=== PATIENT | female | born 1935 | race Asian ===

== ENCOUNTER 2017-02-19 16:01 | Inpatient (IN) | payer MEDICARE, OTHER ==
[~2017-02-19] VITALS: Ht 160 cm; Wt 68.0 kg
[~2017-02-19 16:01] MED LIST: Acetaminophen 500mg (ES) tab PO ONE; Neosporin Oint Ud Pkt TOP ONE; Tetanus/Diptheria/Pertussis Vaccine 0.5ml Syr IM ONE
[2017-02-19 16:28] LABS: BASOPHILS % (AUTO) 1.6 % (0.0-2.0); EOSINOPHILS % (AUTO) 2.5 % (0.0-3.0); LYMPHOCYTES % (AUTO) 34.4 % (20.0-45.0); MEAN CORPUSCULAR HEMOGLOBIN 32.9 PG (27.0-31.0); MEAN CORPUSCULAR HGB CONC 33.9 G/DL (32.0-36.0); MEAN CORPUSCULAR VOLUME 97 FL (80-99); MEAN PLATELET VOLUME 8.8 FL (6.5-10.1); MONOCYTES % (AUTO) 7.3 % (1.0-10.0); NEUTROPHILS % (AUTO) 54.2 % (45.0-75.0); PLATELET COUNT 134 K/UL (150-450); RED BLOOD COUNT 3.97 M/UL (4.20-5.40); RED CELL DISTRIBUTION WIDTH 11.8 % (11.6-14.8); WHITE BLOOD COUNT 4.9 K/UL (4.8-10.8)
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
[2017-02-19 16:48] LABS: PROTHROMBIN TIME 10.3 SEC (9.30-11.50)
[2017-02-19 16:55] LABS: TROPONIN I < 0.30 ng/mL (<=0.30)
[2017-02-19 16:56] LABS: ALANINE AMINOTRANSFERASE 27 U/L (3-33); ALBUMIN/GLOBULIN RATIO 1.2 (1.0-2.7); ANION GAP 14 (5-15); ASPARTATE AMINO TRANSFERASE 29 U/L (5-40); CALCIUM 9.7 mg/dL (8.6-10.2); CARBON DIOXIDE 24 mEQ/L (20-30); CHLORIDE 101 mEQ/L (98-107); HEMOLYSIS 36; POTASSIUM 4.8 mEQ/L (3.4-4.9); SODIUM 139 mEQ/L (135-145); TOTAL PROTEIN 7.9 g/dL (6.6-8.7)
[2017-02-19 17:42] VITALS: BP 157/94
[2017-02-19] MEDS ORDERED: Cephalexin 500mg cap ORAL ONE (18:30)
[2017-02-19 18:51] VITALS: BP 133/65
[2017-02-19] MEDS ORDERED: UNOBMED (18:53)
[2017-02-19 19:03] LABS: APPEARANCE,URINE CLEAR; KETONES,URINE NEGATIVE (NEGATIVE); LEUKOCYTE ESTERASE ,URINE 3+ (NEGATIVE); NITRITE,URINE NEGATIVE (NEGATIVE); PH,URINE 5 (4.5-8.0); PROTEIN,URINE NEGATIVE (NEGATIVE); UROBILINOGEN,URINE NORMAL MG/DL (0.0-1.0)
[2017-02-19 19:13] LABS: RBC,URINE 0-2 /HPF (0 - 2); WBC,URINE 15-20 /HPF (0 - 2)
[2017-02-19 19:14] LABS: BACTERIA,URINE FEW /HPF; SQUAMOUS EPITHELIAL CELL,UR OCCASIONAL /LPF (NONE/OCC)
[2017-02-19 20:34] VITALS: BP 130/62
[2017-02-19] MEDS ORDERED: ATORVASTATIN CA40 MG ORAL (21:39)
[2017-02-19] MEDS ORDERED: SINEMET 25-1001 EAC1 ORAL (21:39)
[2017-02-19] MEDS ORDERED: OMEPRAZOLE20 M2 ORAL (21:39)
[2017-02-19] MEDS ORDERED: JANUVIA100 MG ORAL (21:39)
[2017-02-19] MEDS ORDERED: VESICARE5 MG ORAL (21:41)
[2017-02-19] MEDS ORDERED: DIOVAN HCT 1601 EAC1 ORAL (21:41)
[2017-02-19] MEDS ORDERED: RESTASIS1 EACH BOTH EYES (21:41)
[2017-02-20 00:45] VITALS: BP 113/52
[2017-02-20 04:33] VITALS: BP 138/69
[2017-02-20 05:23] LABS: EOSINOPHILS % (AUTO) 1.7 % (0.0-3.0); MEAN CORPUSCULAR HEMOGLOBIN 33.3 PG (27.0-31.0); MEAN CORPUSCULAR HGB CONC 34.5 G/DL (32.0-36.0); MEAN CORPUSCULAR VOLUME 96 FL (80-99); MEAN PLATELET VOLUME 8.7 FL (6.5-10.1); MONOCYTES % (AUTO) 9.6 % (1.0-10.0); NEUTROPHILS % (AUTO) 51.6 % (45.0-75.0); PLATELET COUNT 145 K/UL (150-450); RED BLOOD COUNT 3.65 M/UL (4.20-5.40); RED CELL DISTRIBUTION WIDTH 11.9 % (11.6-14.8); WHITE BLOOD COUNT 4.8 K/UL (4.8-10.8)
[2017-02-20] MEDS: NovoLOG Insulin Flexpen SUBQ SCH ×4 (06:30→21:12)
[2017-02-20 06:38] LABS: TROPONIN I < 0.30 ng/mL (<=0.30)
[2017-02-20 06:44] LABS: ALANINE AMINOTRANSFERASE 29 U/L (3-33); ALBUMIN/GLOBULIN RATIO 1.1 (1.0-2.7); ANION GAP 13 (5-15); ASPARTATE AMINO TRANSFERASE 22 U/L (5-40); CALCIUM 9.1 mg/dL (8.6-10.2); CARBON DIOXIDE 23 mEQ/L (20-30); CHLORIDE 106 mEQ/L (98-107); CHOLESTEROL 193 mg/dL (< 200); CHOLESTEROL/HDL RATIO 4.8 (3.3-4.4); HEMOLYSIS 4; LDL CHOLESTEROL (CALC.) 97 mg/dL (60-99); POTASSIUM 3.7 mEQ/L (3.4-4.9); SODIUM 142 mEQ/L (135-145); TOTAL PROTEIN 6.9 g/dL (6.6-8.7)
[2017-02-20 08:10] VITALS: BP 125/71
--- NOTE | 2017-02-20 08:26 | History & Physical ---
History and Physical History & Physicial seen and examined. Dictation is completed. Kodak Cuevas MD Feb 20, 2017 08:26
--- NOTE | 2017-02-20 08:29 | General Progress Note ---
Assessment/Plan Status: stable Assessment/Plan 1- Acute Encephalopathy 2- DM 3- HLP 4- Parkinsonism 5- Gi-DVT prophylaxia 6- Breast CA survivor Plan: Cardiology and Neurology services are consulted pending lab results Subjective ROS Limited/Unobtainable: No Constitutional: Reports: no symptoms HEENT: Reports: no symptoms Cardiovascular: Reports: no symptoms Respiratory: Reports: no symptoms Allergies: Coded Allergies: No Known Allergies (Unverified , 02/19/17) Objective Last 24 Hour Vital Signs Date Time Temp Pulse Resp B/P (MAP) Pulse Ox O2 Delivery O2 Flow Rate FiO2 02/20/17 08:10 97.5 73 19 125/71 96 Room Air 02/20/17 04:33 97.2 79 19 138/69 98 Room Air 02/20/17 04:00 76 02/20/17 00:45 97.1 70 19 113/52 96 Room Air 02/20/17 00:00 71 02/19/17 20:34 97.0 64 19 130/62 97 Room Air 02/19/17 20:00 64 02/19/17 19:54 97.2 64 16 133/65 98 Room Air 02/19/17 18:51 97.2 64 16 133/65 98 Room Air 02/19/17 18:29 98.2 02/19/17 17:42 98.2 16 157/94 97 02/19/17 16:10 70 15 Room Air 02/19/17 15:51 98.2 92 16 157/94 97 Laboratory Tests 02/19/17 16:10: White Blood Count 4.9, Red Blood Count 3.97L, Hemoglobin 13.1, Hematocrit 38.6, Mean Corpuscular Volume 97, Mean Corpuscular Hemoglobin 32.9H, Mean Corpuscular Hemoglobin Concent 33.9, Red Cell Distribution Width 11.8, Platelet Count 134L, Mean Platelet Volume 8.8, Neutrophils (%) (Auto) 54.2, Lymphocytes (%) (Auto) 34.4, Monocytes (%) (Auto) 7.3, Eosinophils (%) (Auto) 2.5, Basophils (%) (Auto ) 1.6, Prothrombin Time 10.3, Prothromb Time International Ratio 1.0, Activated Partial Thromboplast Time 27, Sodium Level 139, Potassium Level 4.8, Chloride Level 101, Carbon Dioxide Level 24, Anion Gap 14, Blood Urea Nitrogen 30H, Creatinine 1.0H, Estimat Glomerular Filtration Rate , Glucose Level 207H, Calcium Level 9.7, Total Bilirubin 0.5, Aspartate Amino Transf (AST/SGOT) 29, Alanine Aminotransferase (ALT/SGPT) 27, Alkaline Phosphatase 77, Troponin I < 0.30, Total Protein 7.9, Albumin 4.4, Globulin 3.5, Albumin/Globulin Ratio 1.2 02/19/17 18:37: Urine Color Pale yellow, Urine Appearance Clear, Urine pH 5, Urine Specific [place] 1.010, Urine Protein Negative, Urine Glucose (UA) 2+H, Urine Ketones Negative, Urine Occult Blood Negative, Urine Nitrite Negative, Urine Bilirubin Negative, Urine Urobilinogen Normal, Urine Leukocyte Esterase 3+H, Urine RBC 0-2 , Urine WBC 15-20H, Urine Squamous Epithelial Cells Occasional, Urine Bacteria Few 02/20/17 04:00: White Blood Count 4.8, Red Blood Count 3.65L, Hemoglobin 12.2, Hematocrit 35.2L , Mean Corpuscular Volume 96, Mean Corpuscular Hemoglobin 33.3H, Mean Corpuscular Hemoglobin Concent 34.5, Red Cell Distribution Width 11.9, Platelet Count 145L, Mean Platelet Volume 8.7, Neutrophils (%) (Auto) 51.6, Lymphocytes ( %) (Auto) 36.0, Monocytes (%) (Auto) 9.6, Eosinophils (%) (Auto) 1.7, Basophils (%) (Auto) 1.0, Sodium Level 142, Potassium Level 3.7, Chloride Level 106, Carbon Dioxide Level 23, Anion Gap 13, Blood Urea Nitrogen 29H, Creatinine 1.0H , Estimat Glomerular Filtration Rate , Glucose Level 220H, Calcium Level 9.1, Total Bilirubin 0.3, Aspartate Amino Transf (AST/SGOT) 22, Alanine Aminotransferase (ALT/SGPT) 29, Alkaline Phosphatase 68, Troponin I < 0.30, Total Protein 6.9, Albumin 3.7, Globulin 3.2, Albumin/Globulin Ratio 1.1, Hemoglobin A1c 7.0H, Pro-B-Type Natriuretic Peptide 402, Triglycerides Level 279H, Cholesterol Level 193, LDL Cholesterol 97, HDL Cholesterol 40, Cholesterol /HDL Ratio 4.8H, Thyroid Stimulating Hormone (TSH) 6.810H Height (Feet): 5 Height (Inches): 3.00 Weight (Pounds): 150 General Appearance: no apparent distress EENT: PERRL/EOMI Neck: supple Cardiovascular: normal rate Respiratory/Chest: lungs clear Abdomen: soft Extremities: non-tender Neurologic: oriented x 3 Skin: other - left ear laceration Kodak Cuevas MD Feb 20, 2017 08:29
[2017-02-20] MEDS ORDERED: Flu Vaccine Quadrivalent 0.5ml IM ONE (09:00)
[2017-02-20] MEDS ORDERED: Pneumococcal Vaccine 25mcg/0.5ml IM ONE (09:00)
[2017-02-20] MEDS ORDERED: Irbesartan 150mg tablet ORAL SCH (09:00)
[2017-02-20] MEDS: Sinemet 25/100 tab ORAL SCH ×3 (09:37→18:20)
[2017-02-20] MEDS: Bacitracin Oint UD TOPIC SCH (09:37)
[2017-02-20] MEDS: Aspirin Baby 81mg ORAL SCH (09:37)
[2017-02-20] MEDS: Enoxaparin 40mg Inj SUBQ SCH (09:41)
--- NOTE | 2017-02-20 10:25 | Diagnostic Imaging Report ---
Indication: Head pain status post trauma Technique: Continuous helical CT scanning of the head was performed utilizing automated exposure control without intravenous contrast material. Axial and coronal reconstructions were obtained. Comparison: None CT dose: Total DLP 1421 mGycm; CTDI vol 70.4 mGy Findings: There is no acute intracranial hemorrhage, mass effect or cortical edema. The ventricles, cisterns and sulci are prominent consistent with atrophy. Minimal periventricular hypoattenuation is seen, a nonspecific finding, suggestive of age-related chronic ischemic but lesser changes. The posterior fossa and fourth ventricle are unremarkable. Sellar and suprasellar regions are grossly unremarkable. Mastoid air cells are clear. Right frontal and maxillary sinus disease is noted. No focal lesions of the bony calvarium or soft tissues of the scalp are seen. Impression: No evidence of acute intracranial hemorrhage, mass effect or cortical edema. No skull fracture. Atrophy and minimal nonspecific periventricular hypoattenuation suggestive of chronic ischemic microvascular changes. Right frontal and maxillary sinus disease. The CT scanner at [facility] is accredited by the [employer] and the scans are performed using protocols designed to limit radiation exposure to as low as reasonably achievable to attain images of sufficient resolution adequate for diagnostic evaluation.
--- NOTE | 2017-02-20 10:28 | Diagnostic Imaging Report ---
Indication: Neck pain status post trauma Technique: CT cervical spine was performed utilizing automated exposure control without intravenous contrast material. Axial and coronal images were generated. CT dose: Total DLP 302 mGycm; CTDI vol 15.2 mGy Comparison: None Findings: There is no acute fracture. The cervical alignment is within normal limits. Degenerative endplate osteophytes and posterior disc osteophyte complexes are seen at the C5/C6 and C6/C7 levels. There is uncovertebral spurring which results in moderate stenosis of the right C5/C6 neuroforamen. Mild degenerative facet arthropathy is present. Prevertebral soft tissues are within normal limits. The visualized lung apices are clear. Right maxillary sinus disease is noted. Atherosclerotic changes are present. Impression: No acute fracture or cervical malalignment. Degenerative changes of the cervical spine. The CT scanner at [facility] is accredited by the [employer] and the scans are performed using protocols designed to limit radiation exposure to as low as reasonably achievable to attain images of sufficient resolution adequate for diagnostic evaluation.
--- NOTE | 2017-02-20 10:29 | Diagnostic Imaging Report ---
Indication: Chest pain Technique: XRAY CHEST 1 V Comparison: None Findings: Cardiac silhouette is prominent. There is no consolidation, pneumothorax or pleural effusion. Degenerative changes of the spine are noted. Impression: No acute cardio pulmonary disease.
--- NOTE | 2017-02-20 10:30 | Diagnostic Imaging Report ---
Indication: Facial pain status post trauma Technique: CT maxillofacial was performed utilizing automated exposure control without intravenous contrast material. Axial and coronal images were generated. CT dose: Total DLP 595 mGycm; CTDI vol 28.2 mGy Comparison: None Findings: There is no acute fracture. The nasal bones, mandible and orbits appear intact. There is absence of the bilateral lenses. There is right frontal sinus opacification. There is a small fluid level in the right maxillary sinus. Punctate radiopaque densities are seen within the soft tissues of the chin. Impression: No acute fracture. Punctate radiopaque densities within the soft tissues of the chin. Clinical correlation recommended. Sinus disease. The CT scanner at [facility] is accredited by the [employer] and the scans are performed using protocols designed to limit radiation exposure to as low as reasonably achievable to attain images of sufficient resolution adequate for diagnostic evaluation.
--- NOTE | 2017-02-20 10:34 | Diagnostic Imaging Report ---
Indication: Right forearm pain Technique: XRAY FOREARM 2 VIEWS RIGHT Comparison: None Findings: Examination is not optimized for evaluation of the wrist or elbow. There is osteopenia. Radiocarpal joint space narrowing is noted. There is also prominent degenerative change with joint space narrowing of the radiocapitellar and humeroulnar articulations. There is spurring of the radial head and neck junction. A small elbow joint effusion is suggested. Soft tissues are grossly unremarkable. Impression: Examination not optimized for evaluation of the elbow or wrist. Prominent degenerative changes of the right elbow limiting evaluation for fracture. Small elbow joint effusion. Possibility of a radiographically occult fracture cannot be completely excluded. Dedicated evaluation of the elbow recommended as indicated. Narrowing of the radiocarpal joint space. Osteopenia.
--- NOTE | 2017-02-20 10:35 | Diagnostic Imaging Report ---
Indication: Left forearm pain Technique: XRAY FOREARM 2 VIEWS LEFT Comparison: None Findings: Examination is not optimized for evaluation of the wrist or elbow. There is osteopenia. Radiocarpal joint space narrowing is noted. There is also degenerative change with joint space narrowing of the radiocapitellar and humeroulnar articulations. There is spurring of the radial head and neck junction. A small elbow joint effusion is suggested. Soft tissues are grossly unremarkable. Impression: Examination not optimized for evaluation of the elbow or wrist. Prominent degenerative changes of the left elbow limiting evaluation for fracture. Small elbow joint effusion. Possibility of a radiographically occult fracture cannot be completely excluded. Dedicated evaluation of the elbow recommended as indicated. Narrowing of the radiocarpal joint space. Left wrist otherwise not adequately visualized. Dedicated evaluation of the wrist recommended as indicated. Osteopenia.
[2017-02-20 12:07] VITALS: BP 131/54
[2017-02-20 12:15] LABS: TROPONIN I < 0.30 ng/mL (<=0.30)
[2017-02-20 16:00] VITALS: BP 119/64
[2017-02-20] MEDS ORDERED: OYSTER SHELL 51 EAC1 PO (16:05)
[2017-02-20] MEDS ORDERED: FOLIC ACID1 M1 PO (16:05)
--- NOTE | 2017-02-20 17:21 | Neurology Progress Note ---
Interim History Interim History ROS Limited/Unobtainable: No Objective Physical Exam Last Vital Signs Date Time Temp Pulse Resp B/P (MAP) Pulse Ox O2 Delivery O2 Flow Rate FiO2 02/20/17 16:00 73 02/20/17 16:00 97.1 18 119/64 95 Room Air Laboratory Tests Test 02/19/17 18:37 02/20/17 04:00 02/20/17 11:45 Urine Color Pale yellow Urine Appearance Clear Urine pH 5 (4.5-8.0) Urine Specific [place] 1.010 (1.005-1.035) Urine Protein Negative (NEGATIVE) Urine Glucose (UA) 2+ (NEGATIVE) H Urine Ketones Negative (NEGATIVE) Urine Occult Blood Negative (NEGATIVE) Urine Nitrite Negative (NEGATIVE) Urine Bilirubin Negative (NEGATIVE) Urine Urobilinogen Normal MG/DL (0.0-1.0) Urine Leukocyte Esterase 3+ (NEGATIVE) H Urine RBC 0-2 /HPF (0 - 2) Urine WBC 15-20 /HPF (0 - 2) H Urine Squamous Epithelial Cells Occasional /LPF Urine Bacteria Few /HPF (NONE) White Blood Count 4.8 K/UL (4.8-10.8) Red Blood Count 3.65 M/UL (4.20-5.40) L Hemoglobin 12.2 G/DL (12.0-16.0) Hematocrit 35.2 % (37.0-47.0) L Mean Corpuscular Volume 96 FL (80-99) Mean Corpuscular Hemoglobin 33.3 PG (27.0-31.0) H Mean Corpuscular Hemoglobin Concent 34.5 G/DL (32.0-36.0) Red Cell Distribution Width 11.9 % (11.6-14.8) Platelet Count 145 K/UL (150-450) L Mean Platelet Volume 8.7 FL (6.5-10.1) Neutrophils (%) (Auto) 51.6 % (45.0-75.0) Lymphocytes (%) (Auto) 36.0 % (20.0-45.0) Monocytes (%) (Auto) 9.6 % (1.0-10.0) Eosinophils (%) (Auto) 1.7 % (0.0-3.0) Basophils (%) (Auto) 1.0 % (0.0-2.0) Sodium Level 142 mEQ/L (135-145) Potassium Level 3.7 mEQ/L (3.4-4.9) Chloride Level 106 mEQ/L (98-107) Carbon Dioxide Level 23 mEQ/L (20-30) Anion Gap 13 (5-15) Blood Urea Nitrogen 29 mg/dL (7-23) H Creatinine 1.0 mg/dL (0.5-0.9) H Estimat Glomerular Filtration Rate mL/min (>60) Glucose Level 220 mg/dL (74-106) H Hemoglobin A1c 7.0 % (< 6.0) H Calcium Level 9.1 mg/dL (8.6-10.2) Total Bilirubin 0.3 mg/dL (0.0-1.2) Aspartate Amino Transf (AST/SGOT) 22 U/L (5-40) Alanine Aminotransferase (ALT/SGPT) 29 U/L (3-33) Alkaline Phosphatase 68 U/L (35-104) Troponin I < 0.30 ng/mL (<=0.30) < 0.30 ng/mL (<=0.30) Pro-B-Type Natriuretic Peptide 402 pg/mL (0-450) Total Protein 6.9 g/dL (6.6-8.7) Albumin 3.7 g/dL (3.5-5.2) Globulin 3.2 g/dL Albumin/Globulin Ratio 1.1 (1.0-2.7) Triglycerides Level 279 mg/dL (< 150) H Cholesterol Level 193 mg/dL (< 200) LDL Cholesterol 97 mg/dL (60-99) HDL Cholesterol 40 mg/dL (> 60) Cholesterol/HDL Ratio 4.8 (3.3-4.4) H Thyroid Stimulating Hormone (TSH) 6.810 uIU/mL (0.300-4.500) Impression/Recommendations Problems: (1) cerebral concussion (2) Parkinsonian syndrome (3) Multiple abrasions (4) Syncope (5) UTI (urinary tract infection) (6) Laceration of ear Status: stable Recommendations #[id number] NENO QUINTANILLA Feb 20, 2017 17:21
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
--- NOTE | 2017-02-20 19:48 | Cardiology Progress Note ---
Assessment/Plan Assessment/Plan The patient is seen and examined, full consult note will be dictated shortly. Objective Last 24 Hour Vital Signs Date Time Temp Pulse Resp B/P (MAP) Pulse Ox O2 Delivery O2 Flow Rate FiO2 02/20/17 16:00 73 02/20/17 16:00 97.1 73 18 119/64 95 Room Air 02/20/17 12:07 96.4 63 18 131/54 93 Room Air 02/20/17 12:00 68 02/20/17 09:37 125/71 02/20/17 08:10 97.5 73 19 125/71 96 Room Air 02/20/17 08:00 71 02/20/17 04:33 97.2 79 19 138/69 98 Room Air 02/20/17 04:00 76 02/20/17 00:45 97.1 70 19 113/52 96 Room Air 02/20/17 00:00 71 02/19/17 20:34 97.0 64 19 130/62 97 Room Air 02/19/17 20:00 64 02/19/17 19:54 97.2 64 16 133/65 98 Room Air Intake and Output 02/20/17 02/21/17 19:00 07:00 Intake Total 740 ml Balance 740 ml Intake Oral 740 ml # Voids 2 Laboratory Tests Test 02/20/17 04:00 02/20/17 11:45 White Blood Count 4.8 K/UL (4.8-10.8) Red Blood Count 3.65 M/UL (4.20-5.40) L Hemoglobin 12.2 G/DL (12.0-16.0) Hematocrit 35.2 % (37.0-47.0) L Mean Corpuscular Volume 96 FL (80-99) Mean Corpuscular Hemoglobin 33.3 PG (27.0-31.0) H Mean Corpuscular Hemoglobin Concent 34.5 G/DL (32.0-36.0) Red Cell Distribution Width 11.9 % (11.6-14.8) Platelet Count 145 K/UL (150-450) L Mean Platelet Volume 8.7 FL (6.5-10.1) Neutrophils (%) (Auto) 51.6 % (45.0-75.0) Lymphocytes (%) (Auto) 36.0 % (20.0-45.0) Monocytes (%) (Auto) 9.6 % (1.0-10.0) Eosinophils (%) (Auto) 1.7 % (0.0-3.0) Basophils (%) (Auto) 1.0 % (0.0-2.0) Sodium Level 142 mEQ/L (135-145) Potassium Level 3.7 mEQ/L (3.4-4.9) Chloride Level 106 mEQ/L (98-107) Carbon Dioxide Level 23 mEQ/L (20-30) Anion Gap 13 (5-15) Blood Urea Nitrogen 29 mg/dL (7-23) H Creatinine 1.0 mg/dL (0.5-0.9) H Estimat Glomerular Filtration Rate mL/min (>60) Glucose Level 220 mg/dL (74-106) H Hemoglobin A1c 7.0 % (< 6.0) H Calcium Level 9.1 mg/dL (8.6-10.2) Total Bilirubin 0.3 mg/dL (0.0-1.2) Aspartate Amino Transf (AST/SGOT) 22 U/L (5-40) Alanine Aminotransferase (ALT/SGPT) 29 U/L (3-33) Alkaline Phosphatase 68 U/L (35-104) Troponin I < 0.30 ng/mL (<=0.30) < 0.30 ng/mL (<=0.30) Pro-B-Type Natriuretic Peptide 402 pg/mL (0-450) Total Protein 6.9 g/dL (6.6-8.7) Albumin 3.7 g/dL (3.5-5.2) Globulin 3.2 g/dL Albumin/Globulin Ratio 1.1 (1.0-2.7) Triglycerides Level 279 mg/dL (< 150) H Cholesterol Level 193 mg/dL (< 200) LDL Cholesterol 97 mg/dL (60-99) HDL Cholesterol 40 mg/dL (> 60) Cholesterol/HDL Ratio 4.8 (3.3-4.4) H Thyroid Stimulating Hormone (TSH) 6.810 uIU/mL (0.300-4.500) CHRISTOPH VOGT Feb 20, 2017 19:48
[2017-02-20 20:00] VITALS: BP 129/64
[2017-02-20 20:48] LABS: TROPONIN I < 0.30 ng/mL (<=0.30)
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
[2017-02-21] VITALS (7 sets, daily range): BP systolic 124–138; BP diastolic 57–68
[2017-02-21 06:09] LABS: BASOPHILS % (AUTO) 0.9 % (0.0-2.0); LYMPHOCYTES % (AUTO) 31.8 % (20.0-45.0); MEAN CORPUSCULAR HEMOGLOBIN 31.8 PG (27.0-31.0); MEAN CORPUSCULAR HGB CONC 33.2 G/DL (32.0-36.0); MEAN CORPUSCULAR VOLUME 96 FL (80-99); MONOCYTES % (AUTO) 7.7 % (1.0-10.0); NEUTROPHILS % (AUTO) 57.5 % (45.0-75.0); PLATELET COUNT 131 K/UL (150-450); RED BLOOD COUNT 3.62 M/UL (4.20-5.40); RED CELL DISTRIBUTION WIDTH 11.7 % (11.6-14.8); WHITE BLOOD COUNT 4.9 K/UL (4.8-10.8)
[2017-02-21] MEDS: NovoLOG Insulin Flexpen SUBQ SCH ×4 (06:30→21:09)
[2017-02-21 06:33] LABS: ALANINE AMINOTRANSFERASE 9 U/L (3-33); ANION GAP 11 (5-15); ASPARTATE AMINO TRANSFERASE 22 U/L (5-40); CALCIUM 9.5 mg/dL (8.6-10.2); CARBON DIOXIDE 25 mEQ/L (20-30); CHLORIDE 105 mEQ/L (98-107); CREATININE 0.9 mg/dL (0.5-0.9); HEMOLYSIS 4; POTASSIUM 4.3 mEQ/L (3.4-4.9); SODIUM 141 mEQ/L (135-145)
[2017-02-21] MEDS: Bacitracin Oint UD TOPIC SCH (08:12)
[2017-02-21] MEDS: Sinemet 25/100 tab ORAL SCH ×3 (08:12→17:15)
[2017-02-21] MEDS: Aspirin Baby 81mg ORAL SCH (08:12)
[2017-02-21] MEDS: Enoxaparin 40mg Inj SUBQ SCH (08:13)
--- NOTE | 2017-02-21 12:51 | Diagnostic Imaging Report ---
APPROVED REPORT CPT Code: 71679 Vascular Symptoms Syncope CAROTID (BILATERAL) - Imaging reveals no significant plaque within the right and left extracranial carotid arteries. The Doppler spectral flow analysis is within normal limits throughout the extracranial carotid arteries bilaterally. LEFT VERTEBRAL- The left vertebral artery is within normal limits. RIGHT VERTEBRAL - The right vertebral artery not visualized at this time.
[2017-02-21] MEDS ORDERED: NS 275ml ONE (14:26)
[2017-02-21] MEDS ORDERED: Tubing IV Secondary IV ONE (14:26)
--- NOTE | 2017-02-21 14:28 | General Progress Note ---
Assessment/Plan Status: stable Assessment/Plan 1. Acute encephalopathy. 2. Hypertension. 3. Diabetes type 2. 4. Left-sided ear laceration secondary to trauma. 5. Hyperlipidemia. 6. Parkinson's. 7. Gastrointestinal and deep vein thrombosis prophylaxes. 6- Breast CA survivor 9. Hypothyroidism Plan: Cardiology and Neurology services Notes are reviewed will start Synthroid will monitor Subjective ROS Limited/Unobtainable: No Constitutional: Reports: no symptoms HEENT: Reports: no symptoms Cardiovascular: Reports: no symptoms Allergies: Coded Allergies: No Known Allergies (Unverified , 02/19/17) Objective Last 24 Hour Vital Signs Date Time Temp Pulse Resp B/P (MAP) Pulse Ox O2 Delivery O2 Flow Rate FiO2 02/21/17 12:00 69 02/21/17 11:47 97.5 72 18 128/60 96 Room Air 02/21/17 08:00 98.2 67 18 136/64 97 Room Air 02/21/17 08:00 69 02/21/17 04:00 97.7 61 20 138/68 95 Room Air 02/21/17 04:00 65 02/21/17 00:00 63 02/21/17 00:00 97.7 66 20 128/62 96 Room Air 02/20/17 20:00 66 02/20/17 20:00 97.1 64 18 129/64 99 Room Air 02/20/17 16:00 73 02/20/17 16:00 97.1 73 18 119/64 95 Room Air Intake and Output 02/21/17 02/22/17 19:00 07:00 Intake Total 240 ml Balance 240 ml Intake Oral 240 ml # Voids 1 Laboratory Tests 02/20/17 20:15: Magnesium Level 1.6L, Troponin I < 0.30 02/21/17 05:00: Magnesium Level 1.8, White Blood Count 4.9, Red Blood Count 3.62L, Hemoglobin 11.5L, Hematocrit 34.7L, Mean Corpuscular Volume 96, Mean Corpuscular Hemoglobin 31.8H, Mean Corpuscular Hemoglobin Concent 33.2, Red Cell Distribution Width 11.7, Platelet Count 131L, Mean Platelet Volume 8.0, Neutrophils (%) (Auto) 57.5, Lymphocytes (%) (Auto) 31.8, Monocytes (%) (Auto) 7.7, Eosinophils (%) (Auto) 2.0, Basophils (%) (Auto) 0.9, Sodium Level 141, Potassium Level 4.3, Chloride Level 105, Carbon Dioxide Level 25, Anion Gap 11, Blood Urea Nitrogen 25H, Creatinine 0.9, Estimat Glomerular Filtration Rate , Glucose Level 157H, Calcium Level 9.5, Total Bilirubin 0.5, Aspartate Amino Transf (AST/SGOT) 22, Alanine Aminotransferase (ALT/SGPT) 9, Alkaline Phosphatase 72, Total Protein 7.0, Albumin 3.5, Globulin 3.5, Albumin/Globulin Ratio 1.0 Height (Feet): 5 Height (Inches): 3.00 Weight (Pounds): 150 General Appearance: no apparent distress EENT: PERRL/EOMI Neck: normal alignment Cardiovascular: normal rate Respiratory/Chest: lungs clear Abdomen: soft Extremities: non-tender, other - minimal tremor and ridgindity in all extremities Edema: trace edema Neurologic: oriented x 3 Kodak Cuevas MD Feb 21, 2017 14:28
--- NOTE | 2017-02-21 22:48 | Cardiology Progress Note ---
Assessment/Plan Assessment/Plan 1. Pre-syncopal/Syncopal event, likely hypovolemia clinically and in view of high BUN/creat ratio, consider hydration, LVEF is within normal limits. No evidence of arrhythmias so far. 2. DM 3. HTN 4. Severe pulmonary HTN,will require to review the study. Subjective Subjective Sinus rhythm at 67. Objective Last 24 Hour Vital Signs Date Time Temp Pulse Resp B/P (MAP) Pulse Ox O2 Delivery O2 Flow Rate FiO2 02/21/17 20:00 67 02/21/17 20:00 97.7 69 20 129/62 96 Room Air 02/21/17 16:00 66 02/21/17 15:48 97.5 65 18 126/57 95 Room Air 02/21/17 14:31 97.3 66 18 124/60 97 Room Air 02/21/17 12:00 69 02/21/17 11:47 97.5 72 18 128/60 96 Room Air 02/21/17 08:00 98.2 67 18 136/64 97 Room Air 02/21/17 08:00 69 02/21/17 04:00 97.7 61 20 138/68 95 Room Air 02/21/17 04:00 65 02/21/17 00:00 63 02/21/17 00:00 97.7 66 20 128/62 96 Room Air Intake and Output 02/21/17 02/22/17 19:00 07:00 Intake Total 720 ml Balance 720 ml Intake Oral 720 ml # Voids 4 2D Echo: LVEF ~45%, LV enlargement, Severe pulmonary HTN, Mild MR, Sev TR, Mild IL. Laboratory Tests Test 02/21/17 05:00 White Blood Count 4.9 K/UL (4.8-10.8) Red Blood Count 3.62 M/UL (4.20-5.40) L Hemoglobin 11.5 G/DL (12.0-16.0) L Hematocrit 34.7 % (37.0-47.0) L Mean Corpuscular Volume 96 FL (80-99) Mean Corpuscular Hemoglobin 31.8 PG (27.0-31.0) H Mean Corpuscular Hemoglobin Concent 33.2 G/DL (32.0-36.0) Red Cell Distribution Width 11.7 % (11.6-14.8) Platelet Count 131 K/UL (150-450) L Mean Platelet Volume 8.0 FL (6.5-10.1) Neutrophils (%) (Auto) 57.5 % (45.0-75.0) Lymphocytes (%) (Auto) 31.8 % (20.0-45.0) Monocytes (%) (Auto) 7.7 % (1.0-10.0) Eosinophils (%) (Auto) 2.0 % (0.0-3.0) Basophils (%) (Auto) 0.9 % (0.0-2.0) Sodium Level 141 mEQ/L (135-145) Potassium Level 4.3 mEQ/L (3.4-4.9) Chloride Level 105 mEQ/L (98-107) Carbon Dioxide Level 25 mEQ/L (20-30) Anion Gap 11 (5-15) Blood Urea Nitrogen 25 mg/dL (7-23) H Creatinine 0.9 mg/dL (0.5-0.9) Estimat Glomerular Filtration Rate mL/min (>60) Glucose Level 157 mg/dL (74-106) H Calcium Level 9.5 mg/dL (8.6-10.2) Magnesium Level 1.8 mg/dL (1.7-2.5) Total Bilirubin 0.5 mg/dL (0.0-1.2) Aspartate Amino Transf (AST/SGOT) 22 U/L (5-40) Alanine Aminotransferase (ALT/SGPT) 9 U/L (3-33) Alkaline Phosphatase 72 U/L (35-104) Total Protein 7.0 g/dL (6.6-8.7) Albumin 3.5 g/dL (3.5-5.2) Globulin 3.5 g/dL Albumin/Globulin Ratio 1.0 (1.0-2.7) Microbiology Date/Time Source Procedure Growth Status 02/19/17 18:37 Urine,Clean Catch Urine Culture - Preliminary Mixed Gram Positive Organism Resulted Objective General Appearance: well appearing, no apparent distress, GCS 15 HEENT: Abrasion and hematoma L zygoma, PERRLA, EOMI, L pinna laceration Neck: No JVD, no carotid bruit, carotid upstroke 2+ B/L Respiratory: normal breath sounds, L anterior chest tenderness Cardiovascular: regular rate, rhythm, no murmurs, gallops or rubs Gastrointestinal: normal bowel sounds, non tender, soft, non-distended, no HSM Musculoskeletal: No edema, clubbing or cyanosis. CHRISTOPH VOGT Feb 21, 2017 22:48
[2017-02-22] VITALS: BP 119/65
[2017-02-22 04:00] VITALS: BP 118/78
[2017-02-22] MEDS ORDERED: Levothyroxine 25mcg tab ORAL SCH (06:30)
[2017-02-22] MEDS: NovoLOG Insulin Flexpen SUBQ SCH (06:30)
[2017-02-22 07:29] LABS: BASOPHILS % (AUTO) 0.8 % (0.0-2.0); EOSINOPHILS % (AUTO) 2.1 % (0.0-3.0); LYMPHOCYTES % (AUTO) 28.4 % (20.0-45.0); MEAN CORPUSCULAR HEMOGLOBIN 32.1 PG (27.0-31.0); MEAN CORPUSCULAR HGB CONC 33.3 G/DL (32.0-36.0); MEAN CORPUSCULAR VOLUME 96 FL (80-99); MONOCYTES % (AUTO) 8.7 % (1.0-10.0); PLATELET COUNT 156 K/UL (150-450); RED BLOOD COUNT 3.93 M/UL (4.20-5.40); RED CELL DISTRIBUTION WIDTH 11.9 % (11.6-14.8); WHITE BLOOD COUNT 5.4 K/UL (4.8-10.8)
[2017-02-22 07:40] LABS: ALANINE AMINOTRANSFERASE 14 U/L (3-33); ALBUMIN/GLOBULIN RATIO 1.2 (1.0-2.7); ANION GAP 14 (5-15); ASPARTATE AMINO TRANSFERASE 23 U/L (5-40); CALCIUM 9.4 mg/dL (8.6-10.2); CARBON DIOXIDE 24 mEQ/L (20-30); CHLORIDE 103 mEQ/L (98-107); HEMOLYSIS 4; POTASSIUM 4.1 mEQ/L (3.4-4.9); SODIUM 141 mEQ/L (135-145); TOTAL PROTEIN 7.6 g/dL (6.6-8.7)
[2017-02-22 08:00] VITALS: BP 118/63
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
[2017-02-22] MEDS: Aspirin Baby 81mg ORAL SCH (09:43)
[2017-02-22] MEDS: Sinemet 25/100 tab ORAL SCH (09:43)
[2017-02-22] MEDS: Enoxaparin 40mg Inj SUBQ SCH (09:45)
[2017-02-22] MEDS: Bacitracin Oint UD TOPIC SCH (09:46)
--- NOTE | 2017-02-22 11:11 | General Progress Note ---
Assessment/Plan Status: stable Assessment/Plan 1. Acute encephalopathy. 2. Hypertension. 3. Diabetes type 2. 4. Left-sided ear laceration secondary to trauma. 5. Hyperlipidemia. 6. Parkinson's. 7. Gastrointestinal and deep vein thrombosis prophylaxes. 6- Breast CA survivor 9. Hypothyroidism Plan: Cardiology and Neurology services Notes are reviewed will start Synthroid ok to followup as an outpatient. ] Home PT Subjective ROS Limited/Unobtainable: No Constitutional: Reports: no symptoms HEENT: Reports: no symptoms Cardiovascular: Reports: no symptoms Allergies: Coded Allergies: No Known Allergies (Unverified , 02/19/17) Objective Last 24 Hour Vital Signs Date Time Temp Pulse Resp B/P (MAP) Pulse Ox O2 Delivery O2 Flow Rate FiO2 02/22/17 08:00 97.9 66 20 118/63 96 Room Air 02/22/17 04:00 76 02/22/17 04:00 97.5 66 20 118/78 92 Room Air 02/22/17 00:00 66 02/22/17 00:00 97.9 60 20 119/65 96 Room Air 02/21/17 21:00 60 60 02/21/17 20:00 67 02/21/17 20:00 97.7 69 20 129/62 96 Room Air 02/21/17 16:00 66 02/21/17 15:48 97.5 65 18 126/57 95 Room Air 02/21/17 14:31 97.3 66 18 124/60 97 Room Air 02/21/17 12:00 69 02/21/17 11:47 97.5 72 18 128/60 96 Room Air Laboratory Tests 02/22/17 06:03: White Blood Count 5.4, Red Blood Count 3.93L, Hemoglobin 12.6, Hematocrit 37.8, Mean Corpuscular Volume 96, Mean Corpuscular Hemoglobin 32.1H, Mean Corpuscular Hemoglobin Concent 33.3, Red Cell Distribution Width 11.9, Platelet Count 156, Mean Platelet Volume 8.0, Neutrophils (%) (Auto) 60.0, Lymphocytes (%) (Auto) 28.4, Monocytes (%) (Auto) 8.7, Eosinophils (%) (Auto) 2.1, Basophils (%) (Auto ) 0.8, Sodium Level 141, Potassium Level 4.1, Chloride Level 103, Carbon Dioxide Level 24, Anion Gap 14, Blood Urea Nitrogen 31H, Creatinine 1.0H, Estimat Glomerular Filtration Rate , Glucose Level 181H, Calcium Level 9.4, Total Bilirubin 0.8, Aspartate Amino Transf (AST/SGOT) 23, Alanine Aminotransferase (ALT/SGPT) 14, Alkaline Phosphatase 78, Total Protein 7.6, Albumin 4.2, Globulin 3.4, Albumin/Globulin Ratio 1.2 Height (Feet): 5 Height (Inches): 3.00 Weight (Pounds): 150 General Appearance: no apparent distress EENT: PERRL/EOMI Neck: supple Cardiovascular: normal rate Respiratory/Chest: lungs clear Abdomen: soft Extremities: non-tender 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
--- NOTE | 2017-02-23 14:47 | Cardiology Report ---
APPROVED REPORT EXAM: Two-dimensional and M-mode echocardiogram with Doppler and color Doppler. INDICATION Syncope M-Mode DIMENSIONS IVSd0.8 (0.7-1.1cm)Left Atrium (MM)4.2 (1.6-4.0cm) LVDd6.7 (3.5-5.6cm)Aortic Root3.2 (2.0-3.7cm) PWd0.8 (0.7-1.1cm)Aortic Cusp Exc.2.0 (1.5-2.0cm) IVSs1.2 cm LVDs5.1 (2.5-4.0cm) PWs1.2 cm Normal left ventricular systolic function and wall motion. Left ventricular ejection fraction estimated to be 55 %. No evidence of pericardial effusion. Left atrial enlargement. Right cardiac chamber sizes are within normal limits. Normal pulmonic valve structure. Normal tricuspid valve structure. IVC at normal size with slight physiologic collapse. A color flow and spectral Doppler study was performed and revealed: Moderate aortic regurgitation. Mild mitral regurgitation. Mitral diastolic velocities suggest reduced left ventricular relaxation c/w mild LV diastolic dysfunction (Grade I ). Moderate to severe tricuspid regurgitation. Tricuspid systolic velocities suggests peak right ventricular systolic pressure of 92 mmHg, consistent with severe pulmonary hypertension. Moderate pulmonic regurgitation present.
--- NOTE | 2017-02-24 09:35 | Discharge Summary ---
Discharge Summary Hospital Course Date of Admission Feb 19, 2017 at 17:49 Date of Discharge Feb 22, 2017 at 10:23 Admitting Diagnosis SYNCOPE JOSAFAT Hwang is a 81 year old female who was admitted on Feb 19, 2017 at 17:49 for FALL Hospital Course [id number] Discharge Discharge Disposition Patient was discharged to Home with Home Health(06) Discharge Diagnoses: Macey Dennis NP Feb 24, 2017 09:35
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
--- NOTE | 2017-02-25 15:51 | Cardiology Report ---
APPROVED REPORT EKG Measurement Heart [id number] Normal sinus rhythm Nonspecific ST and T wave abnormality Abnormal ECG
== END 2017-02-22 10:23 | disposition home health service (06) | DRG 88 ==
LOC: EDBD 16:01 → EMR 17:40 → 2E 17:49 → EDBEDREQ 18:19 → 2E 20:05
PROC: 09Q1XZZ Repair Left External Ear, External Approach (ICD-10-PCS; principal; 2017-02-19)
DX: S06.0X1A Concussion with loss of consciousness of 30 minutes or less, initial encounter (principal); G93.41 Metabolic encephalopathy; I27.2 Other secondary pulmonary hypertension; G20 Parkinson's disease; I10 Essential (primary) hypertension; S01.01XA Laceration without foreign body of scalp, initial encounter; S30.0XXA Contusion of lower back and pelvis, initial encounter; E11.9 Type 2 diabetes mellitus without complications; S01.312A Laceration without foreign body of left ear, initial encounter; W10.0XXA Fall (on)(from) escalator, initial encounter; M19.90 Unspecified osteoarthritis, unspecified site; Z96.653 Presence of artificial knee joint, bilateral; E78.5 Hyperlipidemia, unspecified; Z85.3 Personal history of malignant neoplasm of breast; S40.012A Contusion of left shoulder, initial encounter; Z79.4 Long term (current) use of insulin; S80.12XA Contusion of left lower leg, initial encounter; S40.022A Contusion of left upper arm, initial encounter
CPT/HCPCS: 36415; 70450; 70486; 71010; 72125; 80053; 80061; 81003; 82962; 83036; 83735; 83880; 84443; 84484; 85025; 85610; 85730; 87086; 90471; 90630; 90715; 90732; 93005; 93306; 93880; 99285; J1815